=== PATIENT | female | born 1995 | race Caucasian/White ===

== ENCOUNTER 2021-02-28 11:07 | Emergency (ER) | payer MEDICAID, SELFPAY ==
[~2021-02-28] VITALS: Ht 142.2 cm; Wt 34.0 kg
[2021-02-28 11:15] VITALS: BP_SYST 130
[2021-02-28 12:13] LABS: BASOPHILS % (AUTO) 0.4 % (0.0-2.0); HEMATOCRIT 39.5 % (36-48); HEMOGLOBIN 13.2 g/dL (12.0-16.0); LYMPHOCYTES # (AUTO) 0.1 K/uL (1.0-5.5); LYMPHOCYTES % (AUTO) 2.9 % (20.5-51.5); MEAN CORPUSCULAR HEMOGLOBIN 32 pg (27-31); MEAN CORPUSCULAR HGB CONC 33 % (32-36); MEAN CORPUSCULAR VOLUME 96 fL (79.0-98.0); MONOCYTES # (AUTO) 0.1 K/uL (0.0-1.0); NEUTROPHILS # (AUTO) 4.7 K/uL (1.8-7.7); NEUTROPHILS % (AUTO) 95.7 % (40.0-70.0); PLATELET COUNT (AUTO) 419 K/uL (130-430); RED BLOOD CELL COUNT(AUTO) 4.09 MIL/uL (4.2-6.2); RED CELL DISTRIBUTION WIDTH 15.4 % (9.0-15.0)
[2021-02-28 12:25] LABS: CALCIUM 8.8 mg/dL (8.4-11.0); CREATININE 0.67 mg/dL (0.55-1.30); POTASSIUM 4.1 mmol/L (3.5-5.1)
[2021-02-28 12:31] LABS: ALBUMIN 3.3 g/dL (3.4-4.8); TOTAL BILIRUBIN 0.2 mg/dL (0.0-1.0)
--- NOTE | 2021-02-28 12:33 | NUR ---
Patient's name was called in the lobby and in tent. No answer. Patient left without being seen by physician.
--- NOTE | 2021-02-28 12:38 | NUR ---
Patient to amb3 for evaluation. Side rails up.
--- NOTE | 2021-02-28 12:40 | NUR ---
ER at ambulance examining patient.
--- NOTE | 2021-02-28 13:00 | NUR ---
Pt seen in [facility] for abd pain last night d/c'd with dx: Crohn's exacerbation. Pt has no acute distress noted. Pt's parents requesting evaluation for stated abd pain. Pt h/o Down's syndrome and Crohn's disease with attention seeking behavior per family.
[2021-02-28] MEDS ORDERED: NACL 0.9% 1,000 ML IV ONE (13:15)
[2021-02-28] MEDS ORDERED: ONDANSETRON HCL 4 MG/2 ML VIAL IVP ONE (13:15)
[2021-02-28] MEDS ORDERED: MORPHINE 4 MG INJ. 4 MG/ML VIAL IVP ONE (13:15)
--- NOTE | 2021-02-28 15:00 | NUR ---
Patient transported to radiology via gurney, accompanied by rad staff and EMS.
--- NOTE | 2021-02-28 15:15 | NUR ---
Returned from radiology, back to [facility].
[2021-02-28] MEDS ORDERED: HYDR-3917 PO (17:07)
[2021-02-28] MEDS ORDERED: IBUP-1969 PO (17:07)
--- NOTE | 2021-02-28 17:13 | NUR ---
Patient given written and verbal discharge instructions and verbalizes understanding. ER MD discussed with patient the results and treatment provided. Patient in stable condition. ID arm band removed. NO Rx given. Patient educated on pain management and to follow up with PMD. Pain Scale 0 Opportunity for questions provided and answered. Medication side effect fact sheet provided.
[2021-02-28 17:20] VITALS: BP_SYST 124
== END 2021-02-28 17:13 | disposition home or self-care (01) ==
LOC: SED 11:07
DX: R11.2 Nausea with vomiting, unspecified (principal); R10.84 Generalized abdominal pain
CPT/HCPCS: 36415; 76376; 80053; 83690; 85025; 99284